=== PATIENT | female | born 1935 | race Hispanic/Latino ===

== ENCOUNTER 2018-03-17 06:18 | Day surgery (SDC) | payer MEDICARE, OTHER ==
[~2018-03-17 06:18] MED LIST: VANCOMYCIN/NS 1 GM/250 ML 1 GM/250 ML BAG IV NR
[2018-03-17] MEDS ORDERED: NACL BACTERIOSTATIC INFILTRATI ONE (06:49)
--- NOTE | 2018-03-17 07:15 | Anesthesia Consultation ---
Anesthesia Consult and Med Hx Date of service: 03/17/18 - Airway Anesthetic Teeth Evaluation: Dentures, Partials ROM Head & Neck: Adequate Mental/Hyoid Distance: Adequate Mallampati Class: Class II Intubation Access Assessment: Good - Pulmonary Exam CTA: Yes - Cardiac Exam Cardiac Exam: RRR - Pre-Operative Health Status ASA Pre-Surgery Classification: ASA3 Proposed Anesthetic Plan: General - Pulmonary Hx Smoking: No Hx Asthma: Yes Hx Pneumonia: Yes (FEB 2017) Hx Sleep Apnea: No (ANTHONY PRE SCREEN HIGH RISK.) - Cardiovascular System Hx Hypertension: Yes
--- NOTE | 2018-03-17 07:16 | Anesthesia Day of Surgery ---
Anesthesia Day of Surgery - Day of Surgery Patient Examined: Yes Patient H&P Reviewed: Yes Patient is NPO: Yes
[2018-03-17] MEDS ORDERED: DECADRON ONE ×2 (07:41→09:07)
[2018-03-17] MEDS ORDERED: ZOFRAN ONE (07:41)
[2018-03-17] MEDS ORDERED: DIPRIVAN 10 MG/ML IV ONE (07:41)
[2018-03-17] MEDS ORDERED: SUBLIMAZE ONE (07:42)
[2018-03-17] MEDS ORDERED: PEPCID IV NR (08:00)
[2018-03-17] MEDS ORDERED: NACL 0.9% 1000 ML 1,000 ML IV SCH (08:00)
[2018-03-17] MEDS ORDERED: VERSED IV NR (08:00)
[2018-03-17] MEDS ORDERED: XYLOCAINE 1% 20 mL ONE (08:15)
--- NOTE | 2018-03-17 08:45 | Mammography Report ---
Right breast needle localization: The patient presents with a biopsy marker in the superior breast identified as being cancer and prior biopsy. A second marker more inferiorly in the breast identified as being benign. A superior approach was utilized with mammogram grid technique. The skin was cleansed and 1% lidocaine used for local anesthesia. A 5 cm length Leroy needle was introduced and its position confirmed with orthogonal mammography. After slight correction a wire was placed with removal of the needle and its final position was also confirmed with orthogonal mammography. There are no patient complications.
--- NOTE | 2018-03-17 09:39 | Procedure Note ---
Date of procedure: 03/17/18 Pre-op diagnosis: rt. breast ca Procedure: needle loc. Anesthesia: local Surgeon: RICARDO WARNER Estimated blood loss: none Pathology: none Condition: stable (surgery) Disposition: other
[2018-03-17] MEDS ORDERED: WATER FOR IRRIG STERILE IR ONE (10:30)
[2018-03-17] MEDS ORDERED: ROBINUL ONE (11:59)
--- NOTE | 2018-03-17 12:22 | Operative Report ---
Operative Report Operative Report: March 17, 2018 Preoperative diagnosis: Right breast cancer of the upper outer quadrant Postoperative diagnosis: Same Procedure: Right needle localization partial mastectomy of the upper outer quadrant and SLNB Surgeon: Sofía Sanchez MD Anesthesia: General Findings: Right wire and clip present within radiograph specimen; x 2 SLN Complications: None EBL: Minimal Disposition: PACU in good condition Indications for operative procedure: This is an 82 year old lady with newly diagnosed right breast cancer of the upper outer quadrant, IDCA grade 2-3 Stage I [id number] ER/TN positive. Recommendations were to proceed with breast conservation. She recently underwent biopsy of breast nodule at 12:00 position about 2-3 cm from known cancer with findings of a fibroadenoma. She understands the role of adjuvant radiation therapy and anti-hormonal therapy. She wished to proceed with the above procedure. Procedure in detail: The patient was taken to radiology for wire placement for localization known area of cancer. Anesthesia placed right pectoral block. Patient was then taken to the operating room. Gen. anesthesia was administered. The right nipple was injected with radioisotope. Right breast and axilla were prepped and draped in the normal sterile operative fashion. The wire was identif ied. Timeout was performed. Gamma probe was inserted into the axilla. The area of hot spot was identified. A right axillary incision was made with a 15 blade knife with dissection taken down to the subcutaneous tissues. The axillary fascia was opened with the Bovie cautery. 3 SLNs were identified. All remaining counts were less than 10% of the highest count. Lymph nodes were sent to pathology for permanent processing. Hemostasis was obtained in the right axillary cavity. Axillary cavity was appropriately irrigated and suctioned. Hemostasis was noted. Axillary fascia was approximated and closed using interrupted 3-0 Vicryl and the skin brought together and closed using a running 4-0 Monocryl followed by skin affix. Attention was then taken towards the right breast. A 12:00 breast incision was made with a 15 blade knife and dissection taken down to subcutaneous tissues. First began raising of the superior flap with removal of the wire from the skin with dissection take down to the pectoralis muscle, followed by raising of the inferior flap, medial flap and lateral flap with all flaps taken down to the pectoralis muscle. The breast area of concern was appropriately removed posteriorly from the pectoralis muscle with the aid of the Bovie cautery. The wire was not encountered. Specimen was marked and then sent to pathology and radiology; radiograph specimen with wire and clips present. Then additional caudal and lateral margin were taken to ensure adeuquate margins that was marked and sent to pathology as well. Breast cavity was irrigated and hemostasis was obtained. The posterior deep breast tissues were approximated and closed using interrupted 3-0 Vicryl. The subcutaneous tissues were approximated and closed using interrupted 3-0 Vicryl followed by closing of the skin with a running 4-0 Monocryl and skin affix. The patient tolerated surgery very well and she was awaken from anesthesia without any complication and transported to PACU in good condition.
--- NOTE | 2018-03-17 12:24 | Short Stay Summary ---
Short Stay Documentation Date of service: 03/17/18 - History H&P: obtained from office - Allergies and Medications Current Medications: Allergies amoxicillin [From Augmentin] Adverse Reaction (Verified 03/07/18 10:45) Unknown clavulanic acid [From Augmentin] Adverse Reaction (Verified 03/07/18 10:45) Unknown erythromycin base Adverse Reaction (Verified 03/07/18 10:45) Unknown latex Adverse Reaction (Verified 03/07/18 10:44) Rash Penicillins Adverse Reaction (Verified 03/07/18 10:43) Unknown Sulfa (Sulfonamide Antibiotics) Adverse Reaction (Verified 03/07/18 10:43) Unknown Home Medications Medication Instructions Recorded Confirmed Last Taken Type Albuterol 2.5 mg IH Q6HR PRN 03/07/18 03/17/18 1 Year Ago History ~03/17/17 Atenolol [Tenormin] 100 mg PO DAILY 03/07/18 03/17/18 03/17/18 07:30 History Fenofibrate Nanocrystallized 145 mg PO DAILY 03/07/18 03/07/18 03/16/18 History [Fenofibrate] Losartan Potassium 100 mg PO DAILY 03/07/18 03/07/18 03/16/18 History Omeprazole 20 mg PO DAILY 03/07/18 03/07/18 03/16/18 History Simvastatin 40 mg PO DAILY 03/07/18 03/07/18 03/16/18 History Active Medications Famotidine (Pepcid) 20 mg IV PREOP NR Stop: 03/17/18 23:00 Last Admin: 03/17/18 07:50 Dose: 20 mg Documented by: Vancomycin HCl (Vancomycin/Ns 1 Gm/250 Ml) 1 gm in 250 mls @ 167.007 mls/hr IV PREOP NR; Protocol Stop: 03/17/18 23:59 Last Admin: 03/17/18 09:30 Dose: 167.007 mls/hr Documented by: Sodium Chloride (Nacl 0.9% 1000 Ml) 1,000 mls @ 75 mls/hr IV DIRECT JORGE Last Admin: 03/17/18 09:00 Dose: 75 mls/hr Documented by: Midazolam HCl (Versed) 2 mg IV PREOP NR Stop: 03/17/18 23:59 Last Admin: 03/17/18 09:11 Dose: 2 mg Documented by: - Brief post op/procedure progress note Date of procedure: 03/17/18 Pre-op diagnosis: Right breast cancer of the upper outer quadrant Post-op diagnosis: same Procedure: Right needle localization partial mastectomy with SLNB Anesthesia: GETA Findings: Wire and clip present with specimen; 3 SLNS Surgeon: KARLA GUTIERREZ Estimated blood loss: minimal Pathology: list (right partial mastectomy, x3 SLNs) Specimen disposition: to lab Condition: stable - Disposition Condition at discharge: Good Disposition: DC-01 TO HOME OR SELFCARE Short Stay Discharge Plan Activity: other (no heavy lifting) Diet: regular Wound: keep clean and dry (may shower in 48 hours; no baths, pools or lakes; do not rub or scrub incision; wear breast binder) Follow up with: OUSMANE YEE MD [Primary Care Provider] - 7 Days KARLA GUTIERREZ MD [Staff Physician] - 7 Days Prescriptions: HYDROcodone/APAP 5-325 [[place] 5/325] 1 each PO Q6HR PRN #25 tablet PRN Reason: Pain
--- NOTE | 2018-03-17 12:33 | Mammography Report ---
Operative right breast specimen mammography: A single tissue specimen is submitted that includes the localizing wire and the targeted marker. An adjacent marker is also included which apparently was in a benign lesion.
[2018-03-17 13:41] VITALS: BP 136/58
== END 2018-03-17 06:19 | disposition home or self-care (01) ==
LOC: OR 06:18
PROVIDERS: ATTEND Surgery
DX: C50.411 Malignant neoplasm of upper-outer quadrant of right female breast (principal); E78.00 Pure hypercholesterolemia, unspecified; I10 Essential (primary) hypertension; K21.9 Gastro-esophageal reflux disease without esophagitis; M19.90 Unspecified osteoarthritis, unspecified site; F41.9 Anxiety disorder, unspecified; Z88.0 Allergy status to penicillin; Z88.2 Allergy status to sulfonamides; Z91.040 Latex allergy status; Z79.899 Other long term (current) drug therapy; Z98.41 Cataract extraction status, right eye; Z98.42 Cataract extraction status, left eye; Z98.890 Other specified postprocedural states
CPT/HCPCS: 19281; 19301; 38525; 38792; 64450; 76098; 78800; 88307; 88341; 88342; A9541; J1100; J2250; J2405; J2704; J3010; J3370; J7030; 88333

== ENCOUNTER 2018-10-13 08:49 | Outpatient (CLI) | payer MEDICARE, OTHER ==
--- NOTE | 2018-10-13 10:37 | Ultrasound Report ---
ULTRASOUND-GUIDED VACUUM-ASSISTED NEEDLE CORE BIOPSY LEFT BREAST WITH CLIP PLACEMENT CLINICAL: [facility] FINDINGS: The procedure was explained to the patient and informed consent was obtained. Ultrasound demonstrated the previously identified lesion to be at 1:30 o'clock 3 cm from the nipple.. A marked the breast with a felt tip marker and a timeout was called. The skin was prepped with Chloro -Prep and anesthetized with 1% lidocaine. Vacuum-assisted needle core biopsy was performed through tiny dermatotomy using ultrasound guidance, 1% lidocaine for deep anesthesia and a 13-gauge Mammotome Elite biopsy device. 8 cores were obtained and placed in formalin. The lesion disappeared and a HydroMark clip was deployed at the biopsy site. The patient tolerated the procedure well and there were no apparent convocations. Hemostasis was achi eved with minimal effort and a sterile dressing was applied. A post procedure mammogram demonstrated concordant clip deployment. She left the department in good c ondition and was given instructions for wound care and follow-up. IMPRESSION: Uncomplicated ultrasound guided vacuum assisted needle core biopsy with clip placement le ft breast. Signer Name: Jaden Holliday MD Signed: 10/13/2018 10:33 AM Workstation Name: [id number]
--- NOTE | 2018-10-13 14:32 | Mammography Report ---
LEFT DIGITAL DIAGNOSTIC CLINICAL: For clip placement after ultrasound-guided needle biopsy. COMPARISON: 09/22/2018 FINDINGS: A biopsy clip is identified at 1:30 o'clock and correlates with the site of the ultrasound biopsy. No mammographic finding at the clip. IMPRESSION: Concordant clip deployment. Signer Name: Jaden Holliday MD Signed: 10/13/2018 2:28 PM Workstation Name: [id number]
== END 2018-10-13 08:50 | disposition home or self-care (01) ==
LOC: SPVWC 08:49
PROVIDERS: ATTEND Surgery
DX: N60.12 Diffuse cystic mastopathy of left breast (principal); N60.82 Other benign mammary dysplasias of left breast; N60.02 Solitary cyst of left breast; E78.00 Pure hypercholesterolemia, unspecified; I10 Essential (primary) hypertension; J45.909 Unspecified asthma, uncomplicated; K21.9 Gastro-esophageal reflux disease without esophagitis; M19.90 Unspecified osteoarthritis, unspecified site; F41.9 Anxiety disorder, unspecified; Z88.6 Allergy status to analgesic agent; Z88.0 Allergy status to penicillin; Z88.2 Allergy status to sulfonamides; Z91.040 Latex allergy status; Z88.8 Allergy status to other drugs, medicaments and biological substances; Z79.899 Other long term (current) drug therapy; Z98.41 Cataract extraction status, right eye; Z98.42 Cataract extraction status, left eye; Z95.5 Presence of coronary angioplasty implant and graft; Z85.3 Personal history of malignant neoplasm of breast; Z98.890 Other specified postprocedural states
CPT/HCPCS: 88305

== ENCOUNTER 2020-08-15 13:58 | Outpatient (CLI) | payer MEDICARE, OTHER ==
--- NOTE | 2020-08-16 08:34 | Mammography Report ---
DIGITAL SCREENING MAMMOGRAM WITH CAD, 08/15/2020 CLINICAL INFORMATION / INDICATION: Routine screening mammography. TECHNIQUE: Digital bilateral 2D mammography was obtained in the craniocaudal and mediolateral obliqu e projections. This examination was interpreted with the benefit of Computer-Aided Detection analysis . COMPARISON: 08/13/2019, 02/06/2019, 10/13/2018 FINDINGS: Breast Density: There are scattered areas of fibroglandular density. No dominant mass, suspicious calcifications, or architectural distortion in either breast. Right breast postoperative changes and bilateral benign-appearing calcifications have not significant ly changed. IMPRESSION: No mammographic evidence of malignancy. Follow up recommendation: Routine yearly BI-RADS Category 2: Benign. A "normal" or negative report should not discourage follow up or biopsy of a clinically significant f inding. A written summary of these findings will be mailed to the patient. The patient will be entered into a mammography reporting system which will generate a reminder letter for the patient's next appointmen t at the appropriate interval. The [employer] recommends yearly mammograms starting at age 40 and continuing as l crow as a woman is in good health. Breast MRI is recommended for women with an approximate 20-25% or greater lifetime risk of breast cancer, including women with a strong family history of breast or ova clara cancer or who have been treated for Hodgkin's disease. Signer Name: Arash Weiner MD Signed: 08/16/2020 8:30 AM Workstation Name: [id number]
== END 2020-08-15 13:59 | disposition home or self-care (01) ==
LOC: SPVWC 13:58
PROVIDERS: ATTEND Surgery
DX: Z12.31 Encounter for screening mammogram for malignant neoplasm of breast (principal); N64.89 Other specified disorders of breast
CPT/HCPCS: 77067